=== PATIENT | female | born 1985 | race African-American/Black ===

== ENCOUNTER 2025-02-05 20:29 | Inpatient (IN) | payer OTHER, MEDICAID ==
[~2025-02-05] VITALS: Ht 177.8 cm; Wt 116.9 kg
--- NOTE | 2025-02-05 20:57 | ED.PDOC ---
History of Present Illness HPI Comments 39-year-old female came to ER via EMS for syncope. Patient was at [employer] earlier, she felt nauseated, so she decided to go to the bathroom, however she felt dizzy and lightheaded, and she had a syncopal attack, landing face 1st in the floor. Noted 3 cm laceration on her chin. Patient states she has been dr inking alcohol and taking edible marijuana earlier. Upon arrival paramedics, noted to be hypotensive at systolic 80s. Patient was given IV fluids while EN route to the ER. Blood sugar on scene was 95. Patient denies any significant past medical history. She denies possibility of . Chief Complaint: Syncope Time Seen by MD: 20:55 Reviewed Notes: Pediatric Nurse Notes Allergies: Coded Allergies: NO KNOWN ALLERGIES (Unverified , 02/05/25) Home Meds Active Scripts Cephalexin (KEFLEX CAPSULE) 250 Mg Cp, 500 MG PO BID PRN for 5 Days, #10 CAP Prov:LEN DAUGHERTY MD 02/06/25 Bacitracin Zinc (Bacitracin) 500 Unit/Gm Oin, 500 UNIT EX TID for 3 Days, #9 % Prov:LEN DAUGHERTY MD 02/06/25 Information Source: Patient Mode of Arrival: EMS Severity: Moderate Timing: Minutes Duration: Since onset Prehospital treatment: IVF Review of Systems REVIEW OF SYSTEMS: No fever, no chills, or fatigue HEENT: No sore throat, no earache, no congestion, no neck pain. Cardiac: No chest pain. No palpitations. Lungs: No shortness of breath, no cough. GI: No nausea, no vomiting, no diarrhea, no constipation, no abdominal pain : No dysuria, frequency, or urgency. No hematuria. Musculoskeletal: No joint pain , no joint swelling, no extremity edema. Skin: No rash, no itching. (+) laceration Neuro: No headache, (+) dizziness, no weakness (+) syncope Vital Signs Vital Signs Date Time Temp Pulse Resp B/P (MAP) Pulse Ox O2 Delivery O2 Flow Rate FiO2 02/06/25 01:30 98.6 70 16 103/58 (73) 97 98.6 02/05/25 21:10 Room Air* 0 21 Physical Exam General: Awake, alert and oriented. No acute distress. Skin: Skin in warm, dry and intact. Appropriate color for ethnicity. Nailbeds pink with no cyanosis. HEENT: The head is normocephalic no scalp laceration or hematoma. Patient r eports tenderness to palpation of the right TMJ area. Patient is able to open and close the mouth without difficulty. There is a proximally 4 cm laceration right submental area. Wound is through and through to the inner lip. Conjunctivae are clear without exudates or hemorrhage. Sclera is non-icteric. EOM are intact. No signs of nystagmus. PERRLA Eyelids are normal in appearance without swelling or lesions. Oral mucosa is pink and moist Neck: The neck is supple with normal range of motion. No JVD. No C-spine tenderness Cardiac: Heart rate and rhythm are normal. No murmurs, gallops, or rubs are auscultated. Respiratory: No signs of respiratory distress. Lung sounds are clear in all lobes bilaterally without rales, rhonchi, or wheezes. Abdominal: Abdomen is soft, non-tender without distention. Bowel sounds are present and normoactive in all four quadrants. Extremities: Upper and lower extremities are atraumatic in appearance without deformity or edema. Neurological: The patient is awake, alert and oriented to person, place, and time with normal speech. Speech is clear. There is no facial asymmetry. Patient is moving all extremities spontaneously. Strength in upper and lower extremities intact. Psychiatric: Appropriate mood and affect. Good judgement and insight. 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 Was a procedure done?: Yes Sedation Sedation?: No Laceration Repair : Location mentum Length 4cm Anesthetic: Lidocaine, With epi Laceration Repair Prep: Saline, Betadine, by Irrigation Laceration Repair Wound Comple: epidermis/dermis repair, layered repair, subcut tissue repair Informed consent obtained: Yes Risks, benefits, and alternati: Yes Notes Wound irrigated copiously with normal saline under pressure. Inner lip (mucosal side): 3 deep buried sutures using 4-0 Monocryl under the mucosa Outer lip (cutaneous side): 2 deep buried 4 0 Monocryl sutures were placed in the subcutaneous layer to reapproximate muscle/deeper tissue layer A running 4-0 Monocryl suture was used unless deep subcutaneous layer Skin closure: Running 6 0 Ethilon suture placed to approximate skin edges 1 additional single interrupted 6 0 Ethilon suture placed EKG EKG : Pulse Rate (adult): 78 Cardiac Rhythm: NSR Comments Prolonged IA interval. No STEMI Differential Dx Considerations may include: Differential diagnoses considered include but are not limited to closed head injury, skull fracture, TBI, long bone fracture, rib fracture, pneumothorax, spinal fracture, spinal injury, cardiac contusion, organ laceration, pelvic fracture, laceration, soft tissue injury, vascular injury, cardiac structural disease, arrhythmia, acute coronary syndrome, orthostasis, pulmonary embolism, dissection, seizure, basilar stroke, other. X-Ray, Labs, Meds, VS Vital Signs Date Time Temp Pulse Resp B/P (MAP) Pulse Ox O2 Delivery O2 Flow Rate FiO2 02/06/25 01:30 98.6 70 16 103/58 (73) 97 98.6 02/05/25 21:35 98.6 90 16 98/58 (71) 97 98.6 02/05/25 21:10 Room Air* 0 21 02/05/25 21:10 98.6 82 16 87/62 (70) 96 98.6 02/05/25 20:58 78 02/05/25 20:46 78 02/05/25 20:36 99.7 82 16 87/62 (70) 96 99.7 Lab Test 02/05/25 21:47 02/05/25 20:49 Range/Units Troponin I High Sensitivity < 3 L < 3 L </=34 ng/L White Blood Count 7.2 4.4-10.8 10^3/uL Red Blood Count 3.98 L 4.0-5.20 10^6/uL Hemoglobin 10.9 L 12.2-16.2 g/dL Hematocrit 32.8 L 36.0-46.0 % Mean Corpuscular Volume 82.4 80.0-100.0 fL Mean Corpuscular Hemoglobin 27.3 L 28.0-32.0 pg Mean Corpuscular Hemoglobin Concent 33.1 32.0-36.0 g/dL Red Cell Distribution Width 14.0 11.8-14.3 % Platelet Count 284 140-450 10^3/uL Mean Platelet Volume 6.9 6.9-10.8 fL Neutrophils (%) (Auto) 45.4 37.0-80.0 % Lymphocytes (%) (Auto) 46.5 10.0-50.0 % Monocytes (%) (Auto) 5.6 0.0-12.0 % Eosinophils (%) (Auto) 2.1 0.0-7.0 % Basophils (%) (Auto) 0.4 0.0-2.0 % Neutrophils # (Auto) 3.3 1.6-8.6 10 ^3/uL Lymphocytes # (Auto) 3.3 0.4-5.4 10 ^3/uL Monocytes # (Auto) 0.4 0-1.3 10 ^3/uL Eosinophils # (Auto) 0.2 0-0.8 10 ^3/uL Basophils # (Auto) 0 0-0.2 10 ^3/uL Nucleated Red Blood Cells 0.0 % Sodium Level 144 136-145 mmol/L Potassium Level 3.2 L 3.5-5.1 mmol/L Chloride Level 111 H 98-107 mmol/L Carbon Dioxide Level 22 20-31 mmol/L Anion Gap 11 5-15 Blood Urea Nitrogen 10 9-23 mg/dL Creatinine 0.80 0.550-1.02 mg/dL Glomerular Filtration Rate Calc 97 >90 mL/min BUN/Creatinine Ratio 12.5 10.0-20.0 Serum Glucose 141 H 74-106 mg/dL Calcium Level 8.7 8.7-10.4 mg/dL Magnesium Level 1.8 1.6-2.6 mg/dL Total Bilirubin 0.2 0.2-1.0 mg/dL Aspartate Amino Transferase (AST) 15 13-40 U/L Alanine Aminotransferase (ALT) 13 7-40 U/L Alkaline Phosphatase 35 L 46-116 U/L B-Type Natriuretic Peptide 6.93 0-100 pg/mL Total Protein 6.2 5.7-8.2 g/dL Albumin 3.6 3.2-4.8 g/dL Current Medications Medications (Trade) Dose Ordered Sig/Reddy Route Start Time Stop Time Status Last Admin Sodium Chloride 1,000 ml @ 1,000 mls/hr Q1H ONCE IV 02/05/25 20:45 02/05/25 21:44 DC 02/05/25 21:14 Ondansetron HCl (Zofran) 4 mg ONCE ONCE IV 02/05/25 20:45 02/05/25 20:46 DC 02/05/25 21:14 Ketorolac Tromethamine (Toradol Injection) 15 mg ONCE ONCE IV 02/05/25 20:45 02/05/25 20:46 DC 02/05/25 21:14 Lidocaine/ Epinephrine (Lidocaine/ Epinephrine 2% Inj) ONCE ONCE ID 02/05/25 21:30 02/05/25 21:45 DC 02/05/25 21:30 Bacitracin 1 applic ONCE ONCE TOP 02/05/25 21:30 02/05/25 21:45 DC 02/05/25 21:30 Cefazolin Sodium 50 ml @ 100 mls/hr ONCE ONCE IV 02/05/25 23:30 02/05/25 23:59 DC 02/06/25 00:00 Diphtheria/ Tetanus/Acell Pertussis (Boostrix T-Dap) 0.5 ml ONCE ONCE IM 02/05/25 23:30 02/05/25 23:38 DC 02/05/25 23:53 Sodium Chloride 1,000 ml @ 1,000 mls/hr Q1H ONCE IV 02/06/25 02:00 02/06/25 02:59 DC 02/06/25 02:15 PROCEDURE(s): FAC2C - MAXILLOFACIAL WITHOUT HISTORY: Syncope, facial injury TECHNIQUE: Nonenhanced axial images through the facial bones with coronal and sagittal MPR. Radiation Dose Information: CT Dose: CTDI volume is mGy. Dose-length product is mGy*cm COMPARISON: None FINDINGS: Soft tissues: Evidence of skin laceration and mild contusion in the submental region in the midline/to the right of midline. No significant hematoma. Mandible: Unremarkable Maxilla: Unremarkable Zygomatic arches: Unremarkable Nasal bone: Unremarkable Orbits: Unremarkable Paranasal Sinuses / Mastoid air cells / Middle ear cavities: Clear IMPRESSION: No facial fracture. EXAM: CT HEAD WITHOUT CONTRAST INDICATION: Syncope, head injury TECHNIQUE: CT of the head without intravenous contrast. Radiation Dose Information: CT Dose: CTDI volume is 67.65 mGy. Dose-length product is 1197.63 mGy*cm The dose indicators for CT are the volume Computed Tomography (CT) Dose Index (CTDIvol) and the Dose Length Product (DLP), and are measured in units of mGy and mGy-cm, respectively. These indicators are not patient dose, but values generated from the CT scanner acquisition factors. The report includes radiation exposure data for exposures received during this examination. COMPARISON: None FINDINGS: There is no evidence of acute intracranial hemorrhage, extra-axial collection, mass effect, midline shift, herniation or hydrocephalus. The ventricles, sulci and cisterns are age appropriate. The monique-white differentiation is intact. Patchy periventricular and subcortical white matter hypoattenuation is nonspecific but may be related to small vessel ischemic disease. The visualized paranasal sinuses and mastoid air cells are clear. The surrounding soft tissues and osseous structures are unremarkable. IMPRESSION: 1. No acute intracranial hemorrhage 2. No CT findings of territorial ischemia. 3. No CT findings of displaced skull fracture. Time of 1ST Reevaluation: 20:41 Reevaluation 1ST: Unchanged Patient Education/Counseling: Other Family Education/Counseling: Other Departure 1 Departure Time of Disposition: 01:02 Impression: Primary Impression: Syncope Additional Impressions: Facial laceration Lip laceration Disposition: ADMITTED INPATIENT Condition: Stable Additional Instructions: ED DISCHARGE INSTRUCTIONS Instructions: Please read all instructions provided in this packet carefully. Stitches should be removed within 3-5 days. Return to the emergency department or primary care provider or urgent care within 3 days for a wound check. Rinse your mouth with warm salt water right after meals. Saltwater rinses may help healing. To make a saltwater solution for rinsing the mouth, mix 1 tsp of salt in 1 cup of warm water. Although you have been discharged from the Emergency Department, this does not mean that you have a "clean bill of health".No definitive diagnosis for your symptoms has been made today. It is possible that you are in the process of developing a serious illness. This is why you must return to the ED without fail if any new or worsening symptoms (especially if your symptoms include chest pain, trouble breathing, abdominal pain, fever, headache, confusion, trouble seeing, or trouble walking) It is also very important that you see a primary care doctor within the next 3-5 days to follow up. If you are unable to get an appointment, return to the ED for re-evaluation. Lightheadedness or Faintness: Care Instructions Overview Lightheadedness is a feeling that you are about to faint or "pass out." You do not feel as if you or your surroundings are moving. It is different from vertigo, which is the feeling that you or things around you are spinning or tilting. Lightheadedness usually goes away or gets better when you lie down. If lightheadedness gets worse, it can lead to a fainting spell. It is common to feel lightheaded from time to time. It may be caused by many things. These include allergies, dehydration, illness, and medicines. Lightheadedness usually is not caused by a serious problem. It often is caused by a short-lasting drop in blood pressure and blood flow to your head that occurs when you get up too quickly from a seated or lying position. Follow-up care is a trujillo part of your treatment and safety. Be sure to make and go to all appointments, and call your doctor if you are having problems. It's also a good idea to know your test results and keep a list of the medicines you take. How can you care for yourself at home? Lie down for 1 or 2 minutes when you feel lightheaded. After lying down, sit up slowly and remain sitting for 1 to 2 minutes before slowly standing up. Avoid movements, positions, or activities that have made you lightheaded in the past. Get plenty of rest, especially if you have a cold or flu, which can cause lightheadedness. Make sure you drink plenty of fluids, especially if you have a fever or have been sweating. Do not drive or put yourself and others in danger while you feel lightheaded. When should you call for help? Call 911 anytime you think you may need emergency care. For example, call if: You passed out (lost consciousness). You have symptoms of a stroke. These may include: Sudden numbness, tingling, weakness, or loss of movement in your face, arm, or leg, especially on only one side of your body. Sudden vision changes. Sudden trouble speaking. Sudden confusion or trouble understanding simple statements. Sudden problems with walking or balance. A sudden, severe headache that is different from past headaches. You have symptoms of a heart attack. These may include: Chest pain or pressure, or a strange feeling in the chest. Sweating. Shortness of breath. Nausea or vomiting. Pain, pressure, or a strange feeling in the back, neck, jaw, or upper belly or in one or both shoulders or arms. Lightheadedness or sudden weakness. A fast or irregular heartbeat. After you call 911, the desulphurizer operator may tell you to chew 1 adult-strength or 2 to 4 low-dose aspirin. Wait for an ambulance. Do not try to drive yourself. Watch closely for changes in your health, and be sure to contact your doctor if: Your lightheadedness gets worse or does not get better with home care. Credits for Lightheadedness or Faintness: Care Instructions Current as of: April 28, 2024 Author: [employer] Clinical Review Board All [employer] education is reviewed by a team that includes physicians, nurses, advanced practitioners, registered dieticians, and other healthcare professionals. e-Prescriptions Cephalexin (KEFLEX CAPSULE) 250 Mg Cp 500 MG PO BID PRN for 5 Days, #10 CAP Prov: LEN DAUGHERTY MD 02/06/25 Bacitracin Zinc (Bacitracin) 500 Unit/Gm Oin 500 UNIT EX TID for 3 Days, #9 % Prov: LEN DAUGHERTY MD 02/06/25 Comments 39-year-old female with syncopal episode, facial laceration, head injury CT head negative. Patient continues to feel lightheaded, foggy after syncopal episode. Blood pressure is still soft after IV fluids in the ED. Patient admitted to hospitalist service for further treatment, evaluation and monitoring. Extensive evaluation was performed in attempt to identify or rule out: (See differential diagnosis section) The following tests were ordered, and results were reviewed by me and discussed with patient: (See diagnostic results section) The following test were independently interpreted by me: N/A I reviewed and agreed with the following test results read by other providers: N/A I reviewed the following notes from the pt's past medical encounters: N/A Additional information was gathered from interviewing the following independent historians: N/A Discussion of management or test interpretation with external physician/other qualified health intensive care unit nurse: N/A Addressed [ ]one or more chronic illnesses with severe exacerbation, progression, or side effects of treatment: [ ]an acute or chronic illness that poses a threat to life or bodily function: [ ] Decision regarding hospitalization or escalation of hospital level of care: Risk and benefits of admission for further treatment of patient's condition was considered. Due to patient's current clinical condition, high risk of decline and poor outcome if discharged and need for further inpatient management and monitoring, patient will be admitted to the hospital. Discussed with patient. Drug therapy requiring intensive monitoring for toxicity: N/A Parenteral controlled substances: N/A Decision regarding elective major surgery with identified patient or procedure risk factors: N/A Decision regarding emergency major surgery: N/A Decision not to resuscitate or to de-escalate care because of poor prognosis: N/A Diagnosis or treatment significantly limited by social determinants of health: N/A Decision regarding hospitalization or escalation of hospital level of care: Risks and benefits of admission for further treatment of patient's condition was considered however due to patient's stable condition patient will be discharged to follow up closely or return to care for worsening of condition or inability to follow up. Critical Care Note Critical Care Time?: No Stability Stability form required: No Heart Score Heart Score: Heart Score Response (Comments) Value History Slightly Suspicious 0 EKG Normal 0 Age <45 0 Risk Factors No known risk factors 0 Troponin Normal limit 0 Total 0 I personally scribed for LEN DAUGHERTY MD ([email or web address]) on 02/05/25 at 20:57. Electronically submitted by Carlton Dorsey ([email or web address]). I personally scribed for LEN DAUGHERTY MD ([email or web address]) on 02/05/25 at 20:58. E lectron[facility] I personally scribed for LEN DAUGHERTY MD ([email or web address]) on 02/05/25 at 22:24. Electronically submitted by Carlton Dorsey ([employer]). LEN DAUGHERTY MD February 05, 2025 20:57
[2025-02-05] MEDS: KETOROLAC TROMETH 30 MG/ML 1ML VIAL IV ONE (21:14)
[2025-02-05] MEDS: SODIUM CHLORIDE 0.9% 1,000 ML IV ONE (21:14)
[2025-02-05] MEDS: ONDANSETRON HCL 4 MG/2 ML VIAL IV ONE (21:14)
[2025-02-05 21:25] LABS: Basophils # (auto) 0 10 ^3/uL (0-0.2); Basophils % (auto) 0.4 % (0.0-2.0); Eosinophils # (auto) 0.2 10 ^3/uL (0-0.8); Eosinophils % (auto) 2.1 % (0.0-7.0); Hematocrit 32.8 % (36.0-46.0); Hemoglobin 10.9 g/dL (12.2-16.2); Lymphocytes # (auto) 3.3 10 ^3/uL (0.4-5.4); Lymphocytes % (auto) 46.5 % (10.0-50.0); Mean Corpuscular Hemoglobin 27.3 pg (28.0-32.0); Mean Corpuscular Hgb Conc. 33.1 g/dL (32.0-36.0); Mean Corpuscular Volume 82.4 fL (80.0-100.0); Monocytes # (auto) 0.4 10 ^3/uL (0-1.3); Monocytes % (auto) 5.6 % (0.0-12.0); Neutrophils # (auto) 3.3 10 ^3/uL (1.6-8.6); Neutrophils % (auto) 45.4 % (37.0-80.0); Platelet Count (auto) 284 10^3/uL (140-450); Red Blood Cells 3.98 10^6/uL (4.0-5.20); White Blood Cell 7.2 10^3/uL (4.4-10.8)
[2025-02-05] MEDS: BUPIVACAINE 0.25% INJ 50ML VIAL ID ONE (21:30)
[2025-02-05] MEDS: BACITRACIN TOP OINT 1 UD PKG TOP ONE (21:30)
[2025-02-05] MEDS: LIDOCAINE W/ EPINEPHRINE 2% INJ 20ML VIAL ID ONE (21:30)
[2025-02-05 21:42] LABS: Alanine Aminotransferase 13 U/L (7-40); Albumin 3.6 g/dL (3.2-4.8); Anion Gap 11 (5-15); Aspartate Aminotransferase 15 U/L (13-40); BUN/Creatinine Ratio 12.5 (10.0-20.0); Blood Urea Nitrogen 10 mg/dL (9-23); Carbon Dioxide 22 mmol/L (20-31); Chloride 111 mmol/L (98-107); Magnesium 1.8 mg/dL (1.6-2.6); Potassium 3.2 mmol/L (3.5-5.1); Sodium 144 mmol/L (136-145); Total Protein 6.2 g/dL (5.7-8.2)
[2025-02-05 21:43] LABS: Alkaline Phosphatase 35 U/L (46-116); Bilirubin, Total 0.2 mg/dL (0.2-1.0); Calcium 8.7 mg/dL (8.7-10.4); Glucose 141 mg/dL (74-106)
--- NOTE | 2025-02-05 21:44 | DVH ---
EXAM: CT HEAD WITHOUT CONTRAST INDICATION: Syncope, head injury TECHNIQUE: CT of the head without intravenous contrast. Radiation Dose Information: CT Dose: CTDI volume is 67.65 mGy. Dose-length product is 1197.63 mGy*cm The dose indicators for CT are the volume Computed Tomography (CT) Dose Index (CTDIvol) and the Dose Length Product (DLP), and are measured in units of mGy and mGy-cm, respectively. These indicators are not patient dose, but values generated from the CT scanner acquisition factors. The report includes radiation exposure data for exposures received during this examination. COMPARISON: None FINDINGS: There is no evidence of acute intracranial hemorrhage, extra-axial collection, mass effect, midline s hift, herniation or hydrocephalus. The ventricles, sulci and cisterns are age appropriate. The monique-white differentiation is intact. Patchy periventricular and subcortical white matter hypoattenuation is nonspecific but may be related to small vessel ischemic disease. The visualized paranasal sinuses and mastoid air cells are clear. The surrounding soft tissues and osseous structures are unremarkable. IMPRESSION: 1. No acute intracranial hemorrhage 2. No CT findings of territorial ischemia. 3. No CT findings of displaced skull fracture. HS:Y
--- NOTE | 2025-02-05 21:50 | DVH ---
HISTORY: Syncope, facial injury TECHNIQUE: Nonenhanced axial images through the facial bones with coronal and sagittal MPR. Radiation Dose Information: CT Dose: CTDI volume is mGy. Dose-length product is mGy*cm COMPARISON: None FINDINGS: Soft tissues: Evidence of skin laceration and mild contusion in the submental region in the midline/ to the right of midline. No significant hematoma. Mandible: Unremarkable Maxilla: Unremarkable Zygomatic arches: Unremarkable Nasal bone: Unremarkable Orbits: Unremarkable Paranasal Sinuses / Mastoid air cells / Middle ear cavities: Clear IMPRESSION: No facial fracture. Radiation optimization: All CT scans at this facility use at least one of these dose optimization samantha hniques: automated exposure control mA and/or kV adjustment per patient size (includes targeted exam s where dose is matched to clinical indication) or iterative reconstruction.
[2025-02-05] MEDS: TETANUS-DIPTH-ACEL PERTUSSIS 0.5ML SYR Tdap IM ONE (23:53)
[2025-02-06] VITALS (9 sets, daily range): BP systolic 101–121; BP diastolic 53–83; PULSE 76–101; RESP 17–18; TEMP 97.1–98.9; O2SAT 97–100
[2025-02-06] MEDS: ceFAZolin 1GM/50ML 50 ML IV ONE
[2025-02-06] MEDS ORDERED: CEPH250C PO (01:34)
[2025-02-06] MEDS ORDERED: BACI-5 EX (01:34)
[2025-02-06] MEDS ORDERED: ONDANSETRON HCL 4 MG/2 ML VIAL IV PRN (02:15)
[2025-02-06] MEDS: SODIUM CHLORIDE 0.9% 1,000 ML IV ONE ×2 (02:15→05:16)
[2025-02-06] MEDS ORDERED: ACETAMINOPHEN 325 MG TAB PO PRN (02:15)
[2025-02-06] MEDS ORDERED: NITROGLYCERIN 0.4 MG SL TAB SL PRN (02:15)
[2025-02-06] MEDS ORDERED: DOCUSATE SOD 100 MG CAP PO PRN (02:15)
[2025-02-06] MEDS ORDERED: MORPHINE SULFATE INJ 2 MG/ml SYRG IV PRN (02:15)
--- NOTE | 2025-02-06 02:22 | DVHHP2 ---
History of Present Illness Reason for Visit: Syncope History of Present Illness The patient is a 39-year-old female who denies past medical history presented to [facility] ED for evaluation of syncopal episode. Patient [facility] when she felt nauseated, felt dizzy, lightheaded and she had a syncopal attack landing on her face in the floor with sustained laceration to her chin. Patient was seen and evaluated in the ED, laboratory data shows WBC 7.2, hemoglobin 10.9, hematocrit 32.8, platelets 284, sodium 144, potassium 3.2, BUN 10, creatinine 0.80, glucose 141, troponin < 3, BNP 6.93, blood pressure 103/58, heart rate 70, temperature 98.6� F, O2 saturation 97% on room air. Head CT showed no acute intracranial hemorrhage. Please see medication orders section in the computer. On my assessment, patient denied chest pain, no headache, no dizziness, no diaphoresis, no shortness of breath, no nausea, no vomiting, no fever, no chills. Patient was admitted for further evaluation and medical management. Past Medical History Denies past medical history Past Surgical History Denies all surgeries Family History Reviewed, noncontributory to the management of this case. Past Social History The patient lives at home, denies smoking, drinks alcohol occasionally, uses marijuana. Review of Systems Constitutional: No: Fever, Chills, Sweats, Weakness, Malaise, Other Eyes: No: Pain, Vision change, Conjunctivae inflammation, Eyelid inflammation, Other, Redness ENT: No: Ear pain, Ear discharge, Nose pain, Nose discharge, Nose congestion, Mouth pain, Mouth swelling, Throat pain, Throat swelling, Other Respiratory: No: Cough, Dry, Shortness of breath, SOB with excertion, Wheezing, Hemoptysis, Pleuritic Pain, Sputum, Wheezing, Other Cardiovascular: Other (Syncope); No: Chest Pain, Palpitations, Orthopnea, Paroxysmal Noc. Dyspnea, Edema, Lt Headedness Gastrointestinal: No: Nausea, Vomiting, Abdominal Pain, Diarrhea, Constipation, Melena, Hematochezia, Other Genitourinary: No Dysuria, No Frequency, No Incontinence, No Hematuria, No Retention, No Other Musculoskeletal: No: other, neck pain, shoulder pain, arm pain, back pain, hand pain, leg pain, foot pain Skin: Other (Facial/lips laceration); No: Rash, Lesions, Jaundice, Bruising Neurological: No: Weakness, Numbness, Incoordination, Change in speech, Confusion, Seizures, Other Allergies: Coded Allergies: NO KNOWN ALLERGIES (Unverified , 02/05/25) Exam Vital Signs Vital Signs Date Time Temp Pulse Resp B/P (MAP) Pulse Ox O2 Delivery O2 Flow Rate FiO2 02/06/25 01:30 98.6 70 16 103/58 (73) 97 98.6 02/05/25 21:10 Room Air* 0 21 General Appearance: Alert, Oriented X3, Cooperative, No acute distress HEENT: Atraumatic, PERRLA, EOMI, Mucous membr. moist/pink Respiratory: Clear to auscultation, Normal air movement Cardiovascular: Regular rate, Normal S1, Normal S2, No murmurs Abdominal: Normal bowel sounds, Soft, No tenderness, No hepatospenomegaly, No masses Extremities: No clubbing, No cyanosis, No edema, Normal pulses, No tenderness/swelling Skin: No rashes, No breakdown Neuro: Normal gait, Normal speech, Strength at 5/5 X4 ext, Normal tone, Sensation intact, Cranial nerves 3-12 NL, Reflexes 2+ Psych/Mental Status: Mental status NL, Mood NL Labs/Xrays Labs Test 02/05/25 21:47 02/05/25 20:49 Range/Units Troponin I High Sensitivity < 3 L </=34 ng/L White Blood Count 7.2 4.4-10.8 10^3/uL Red Blood Count 3.98 L 4.0-5.20 10^6/uL Hemoglobin 10.9 L 12.2-16.2 g/dL Hematocrit 32.8 L 36.0-46.0 % Mean Corpuscular Volume 82.4 80.0-100.0 fL Mean Corpuscular Hemoglobin 27.3 L 28.0-32.0 pg Mean Corpuscular Hemoglobin Concent 33.1 32.0-36.0 g/dL Red Cell Distribution Width 14.0 11.8-14.3 % Platelet Count 284 140-450 10^3/uL Mean Platelet Volume 6.9 6.9-10.8 fL Neutrophils (%) (Auto) 45.4 37.0-80.0 % Lymphocytes (%) (Auto) 46.5 10.0-50.0 % Monocytes (%) (Auto) 5.6 0.0-12.0 % Eosinophils (%) (Auto) 2.1 0.0-7.0 % Basophils (%) (Auto) 0.4 0.0-2.0 % Neutrophils # (Auto) 3.3 1.6-8.6 10 ^3/uL Lymphocytes # (Auto) 3.3 0.4-5.4 10 ^3/uL Monocytes # (Auto) 0.4 0-1.3 10 ^3/uL Eosinophils # (Auto) 0.2 0-0.8 10 ^3/uL Basophils # (Auto) 0 0-0.2 10 ^3/uL Nucleated Red Blood Cells 0.0 % Sodium Level 144 136-145 mmol/L Potassium Level 3.2 L 3.5-5.1 mmol/L Chloride Level 111 H 98-107 mmol/L Carbon Dioxide Level 22 20-31 mmol/L Anion Gap 11 5-15 Blood Urea Nitrogen 10 9-23 mg/dL Creatinine 0.80 0.550-1.02 mg/dL Glomerular Filtration Rate Calc 97 >90 mL/min BUN/Creatinine Ratio 12.5 10.0-20.0 Serum Glucose 141 H 74-106 mg/dL Calcium Level 8.7 8.7-10.4 mg/dL Magnesium Level 1.8 1.6-2.6 mg/dL Total Bilirubin 0.2 0.2-1.0 mg/dL Aspartate Amino Transferase (AST) 15 13-40 U/L Alanine Aminotransferase (ALT) 13 7-40 U/L Alkaline Phosphatase 35 L 46-116 U/L B-Type Natriuretic Peptide 6.93 0-100 pg/mL Total Protein 6.2 5.7-8.2 g/dL Albumin 3.6 3.2-4.8 g/dL PATIENT: GRETA RAMIREZ ACCT: [id number] UNIT: [id number] : 1985 LOC: ER ROOM / BED: / AGE / SEX: 39 / F ADM STATUS: REG ER SERVICE 37 ORDERING PHYSICIAN: LEN DAUGHERTY MD PROCEDURE(s): HWOCT - HEAD WITHOUT CONTRAST REASON: Syncope, head injury ORDER NUMBER(s): [id number], ACCESSION NUMBER(s): [id number] EXAM: CT HEAD WITHOUT CONTRAST INDICATION: Syncope, head injury TECHNIQUE: CT of the head without intravenous contrast. Radiation Dose Information: CT Dose: CTDI volume is 67.65 mGy. Dose-length product is 1197.63 mGy*cm The dose indicators for CT are the volume Computed Tomography (CT) Dose Index (CTDIvol) and the Dose Length Product (DLP), and are measured in units of mGy and mGy-cm, respectively. These indicators are not patient dose, but values generated from the CT scanner acquisition factors. The report includes radiation exposure data for exposures received during this examination. COMPARISON: None FINDINGS: There is no evidence of acute intracranial hemorrhage, extra-axial collection, mass effect, midline shift, herniation or hydrocephalus. The ventricles, sulci and cisterns are age appropriate. The monique-white differentiation is intact. Patchy periventricular and subcortical white matter hypoattenuation is nonspecific but may be related to small vessel ischemic disease. The visualized paranasal sinuses and mastoid air cells are clear. The surrounding soft tissues and osseous structures are unremarkable. IMPRESSION: 1. No acute intracranial hemorrhage 2. No CT findings of territorial ischemia. 3. No CT findings of displaced skull fracture. ORDERING PHYSICIAN: LEN DAUGHERTY MD PROCEDURE(s): FAC2C - MAXILLOFACIAL WITHOUT REASON: Syncope, facial injury ORDER NUMBER(s): [id number], ACCESSION NUMBER(s): [id number] HISTORY: Syncope, facial injury TECHNIQUE: Nonenhanced axial images through the facial bones with coronal and sagittal MPR. Radiation Dose Information: CT Dose: CTDI volume is mGy. Dose-length product is mGy*cm COMPARISON: None FINDINGS: Soft tissues: Evidence of skin laceration and mild contusion in the submental region in the midline/to the right of midline. No significant hematoma. Mandible: Unremarkable Maxilla: Unremarkable Zygomatic arches: Unremarkable Nasal bone: Unremarkable Orbits: Unremarkable Paranasal Sinuses/Mastoid air cells/Middle ear cavities: Clear IMPRESSION: No facial fracture. Assessment/Plan Assessment/Plan Syncope Hypokalemia Facial laceration Lip laceration Plan 1. Admit to telemetry unit 2. Breathing treatment 3. Pain control management 4. Management of fluids and electrolytes 5. Consultation for Cardiology 6. Diagnostic tests head CT 7. DVT prophylaxis-on SCDs 8. Repeat labs CBC, CMP in a.m. 9. Continue with current medical management 10. Treatment plan discussed with patient and RN. Patient verbalized understanding. Plan discussed with: Patient, Other (RN) My Orders Orders - BEN HERNANDEZ DNP Procedure Category Date Status Time Complete Blood Count LAB 02/06/25 Verified 04:00 Comprehensive LAB 02/06/25 Verified Metabolic Panel 04:00 Bacitracin Ointment PHA 02/06/25 Verified 10:00 * Cardiology Consult CONS 02/06/25 Verified 02:12 Potassium Er Tablet PHA 02/06/25 Verified (Klor-Con Tablet) 02:15 Admit ADMIT 02/06/25 Verified 02:12 Allergies YOGESH 02/06/25 Verified 02:12 Code Status CODE 02/06/25 Verified 02:12 Sodium Chloride Lock PHA 02/06/25 Verified (Saline Lock Ns) 06:00 Oxygen Per Hour RT 02/06/25 Verified 02:12 Hydrocodone-Acet PHA 02/06/25 Verified 5/325mg Tab ([place] 02:15 Ondansetron Hcl PHA 02/06/25 Verified (Zofran) 02:15 Docusate Sodium PHA 02/06/25 Verified Capsule (Colace 02:15 Fall Risk Precautions BANNER 02/06/[address] 02:12 Complete Blood Count LAB 02/07/25 Verified 04:00 Comprehensive LAB 02/07/25 Verified Metabolic Panel 04:00 Cardiac DIET 02/06/25 Verified Diet-2gna,Lofat,Lochol Breakfast Condition: Serious YOGESH 02/06/25 Verified 02:12 Acetaminophen Tablet PHA 02/06/25 Verified (Tylenol Tablet) 02:15 Maintain Bed Rest BANNER 02/06/25 Verified 02:12 Sequential BANNER 02/06/25 Verified Compression Device Nitroglycerin PHA 02/06/25 Verified Sublingual (Ntrostat 02:15 Morphine Sulfate PHA 02/06/25 Verified Injection 02:15 Notify Of Changes BANNER 02/06/25 Verified From Base 02:12 Marketing Writer For BANNER 02/06/25 Verified 24 Hours 02:12 Emergency Dysrhythmia BANNER 02/06/25 Verified Protocol 02:12 Rhythm Strips Once BANNER 02/06/25 Verified Every Shift 02:12 Oxygen By Nasal RT 02/06/25 Verified Cannula 02:12 Problem List: (1) Syncope (2) Hypokalemia (3) Facial laceration (4) Lip laceration Date of Service: February 06, 2025 Billing Provider: BEN HERNANDEZ DNP Common Visit Codes: [id number] INP/OBS CARE (HIGH) BEN HERNANDEZ DNP February 06, 2025 02:22
[2025-02-06 02:48] LABS: Basophils # (auto) 0.1 10 ^3/uL (0-0.2); Basophils % (auto) 0.6 % (0.0-2.0); Eosinophils # (auto) 0.1 10 ^3/uL (0-0.8); Eosinophils % (auto) 0.5 % (0.0-7.0); Hematocrit 36.2 % (36.0-46.0); Hemoglobin 12.1 g/dL (12.2-16.2); Lymphocytes # (auto) 2.4 10 ^3/uL (0.4-5.4); Lymphocytes % (auto) 22.4 % (10.0-50.0); Mean Corpuscular Hemoglobin 27.3 pg (28.0-32.0); Mean Corpuscular Hgb Conc. 33.5 g/dL (32.0-36.0); Mean Corpuscular Volume 81.5 fL (80.0-100.0); Monocytes # (auto) 0.7 10 ^3/uL (0-1.3); Monocytes % (auto) 6.7 % (0.0-12.0); Neutrophils # (auto) 7.4 10 ^3/uL (1.6-8.6); Neutrophils % (auto) 69.8 % (37.0-80.0); Platelet Count (auto) 314 10^3/uL (140-450); Red Blood Cells 4.44 10^6/uL (4.0-5.20); White Blood Cell 10.6 10^3/uL (4.4-10.8)
[2025-02-06] MEDS: ACETAMINOPHEN 325 MG TAB PO ONE (02:51)
[2025-02-06] MEDS: POTASSIUM CHL 20 Meq TABLET PO ONE (02:51)
[2025-02-06] MEDS: KETOROLAC TROMETH 30 MG/ML 1ML VIAL IV ONE (02:52)
[2025-02-06 03:01] LABS: Alanine Aminotransferase 15 U/L (7-40); Albumin 3.9 g/dL (3.2-4.8); Anion Gap 7 (5-15); Aspartate Aminotransferase 20 U/L (13-40); BUN/Creatinine Ratio 15.9 (10.0-20.0); Blood Urea Nitrogen 11 mg/dL (9-23); Carbon Dioxide 23 mmol/L (20-31); Potassium 3.7 mmol/L (3.5-5.1); Sodium 142 mmol/L (136-145); Total Protein 6.5 g/dL (5.7-8.2)
[2025-02-06 03:02] LABS: Alkaline Phosphatase 42 U/L (46-116); Bilirubin, Total 0.2 mg/dL (0.2-1.0); Calcium 8.3 mg/dL (8.7-10.4); Chloride 112 mmol/L (98-107); Glucose 111 mg/dL (74-106)
[2025-02-06 03:34] LABS: Urine Bacteria FEW /hpf (None Seen); Urine Blood Negative /uL (Negative); Urine Budding Yeast OCCASIONAL /hpf (None Seen); Urine Clarity Turbid (Clear); Urine Color Light-Yellow (Yellow); Urine Hyaline Cast FEW /lpf (0 - 2); Urine Mucus FEW (None Seen); Urine Protein, UAD Negative (Negative); Urine Specific Gravity 1.016 (1.001-1.035); Urine Squamous Epithelial Cell FEW /hpf (<5); Urine Urobilinogen Normal (Negative); Urine WBC 17 /HPF (0-5); Urine pH 5.5 (5.0-9.0)
[2025-02-06] MEDS: SODIUM CHLOR 0.9% PF (SALINE LOCK) 10ML VIAL/SYR IV SCH (06:00)
[2025-02-06] MEDS: HYDROcodone-ACET 5/325MG TAB PO PRN (06:38)
--- NOTE | 2025-02-06 07:14 | ECG ---
[facility] Test Date: 2025-02-05 Test Time: 20:46:31 Pat Name: GRETA RAMIREZ Department: ED Room: [address] [place] [address] 6 Gender: F Teaching Pastor: : 1985 Requested By: LEN DAUGHERTY Order Number: [id number] Reading MD: Luis Carlos Hinds Measurements Intervals Muse Rate: 78 P: 44 SD: 263 QRS: 74 QRSD: 88 T: 63 QT: 396 QTc: 452 Interpretive Statements Sinus rhythm Prolonged SD interval Electronically Signed On 02-09-2025 12:40:26 PDT by Luis Carlos Hinds Please click the below link to view image of tracing.
[2025-02-06] MEDS: BACITRACIN TOP OINT 1 UD PKG TOP SCH (10:00)
--- NOTE | 2025-02-06 11:11 | DVHINCON2 ---
Date Seen: February 06, 2025 Referring Physician Armando Reason for Consultation Syncope History of Present Illness 39-year-old female with no significant past medical history presents to the hospital with syncopal episode. Patient states that she got a fairly quick and ended up losing consciousness for few sec falling forward hitting her chin on the pavement ending up with a laceration. Patient does state that at times she gets some palpitations. Denies chest pain, shortness of breath. Patient states this has happened in the past though has been years. Patient does endorse that she did have 2 alcoholic beverages with coming marijuana the day of syncopal episode. Troponins negative. EKG reviewed shows normal sinus rhythm at 78 beats per minute, no significant ST and T-wave abnormalities noted. Past Medical History Denies Past Surgical History Denies Family History: Hypertension G8 FATHER Social History Does use occasional alcohol and marijuana use, denies any other illicit drug use, does vape nicotine. Allergies: Coded Allergies: NO KNOWN ALLERGIES (Unverified , 02/05/25) Home Meds Active Scripts Cephalexin (KEFLEX CAPSULE) 250 Mg Cp, 500 MG PO BID PRN for 5 Days, #10 CAP Prov:LEN DAUGHERTY MD 02/06/25 Bacitracin Zinc (Bacitracin) 500 Unit/Gm Oin, 500 UNIT EX TID for 3 Days, #9 % Prov:LEN DAUGHERTY MD 02/06/25 Current Medications Current Medications Medications (Trade) Dose Ordered Sig/Reddy Route PRN Reason Start Time Stop Time Status Last Admin Bacitracin 1 applic BID TOP 02/06/25 10:00 Sodium Chloride (Saline Lock Ns) 10 ml Q8HR IV 02/06/25 06:00 02/06/25 06:00 Acetaminophen/ Hydrocodone Bitart (Trosper 5/325MG Tab) 1 tab Q4HP PRN PO MODERATE PAIN (4-6 PAIN SCALE) 02/06/25 02:15 02/06/25 10:41 Ondansetron HCl (Zofran) 4 mg Q4HP PRN IV NAUSEA / VOMITING 02/06/25 02:15 Docusate Sodium (Colace Capsule) 100 mg BIDPRN PRN PO FOR CONSTIPATION 02/06/25 02:15 Acetaminophen (Tylenol Tablet) 650 mg Q6HP PRN PO PAIN SCALE 1-3 OR TEMP>100.4 02/06/25 02:15 Nitroglycerin (Ntrostat Sublingual) 0.4 mg Q5MINP PRN SL FOR CHEST PAIN 02/06/25 02:15 Morphine Sulfate 2 mg Q30M PRN IV FOR CHEST PAIN 02/06/25 02:15 Review of Systems Constitutional: No: Fever, Chills, Sweats, Weakness, Malaise, Other Eyes: No: Pain, Vision change, Conjunctivae inflammation, Eyelid inflammation, Other, Redness ENT: No: Ear pain, Ear discharge, Nose pain, Nose discharge, Nose congestion, Mouth pain, Mouth swelling, Throat pain, Throat swelling, Other Respiratory: No: Cough, Dry, Shortness of breath, SOB with exertion, Wheezing, Hemoptysis, Pleuritic Pain, Sputum, Wheezing, Other Cardiovascular: ; No: Chest Pain Palpitations, Orthopnea, Paroxysmal Noc. Dyspnea, Edema, Lt Headedness, Other Gastrointestinal: No: Nausea, Vomiting, Abdominal Pain, Diarrhea, Constipation, Melena, Hematochezia, Other Genitourinary: No Dysuria, No Frequency, No Incontinence, No Hematuria, No Retention, No Other Musculoskeletal: neck pain; No: other, shoulder pain, arm pain, back pain, hand pain, leg pain, foot pain Skin: No: Rash, Lesions, Jaundice, Bruising, Other Neurological: Other (Dizziness, headache.); No: Weakness, Numbness, Incoordination, Change in speech, Confusion, Seizures Vital Signs Vital Signs Date Time Temp Pulse Resp B/P (MAP) Pulse Ox O2 Delivery O2 Flow Rate FiO2 02/06/25 05:00 97.7 85 17 101/63 (76) 97 97.7 02/06/25 03:52 Room Air* 0 21 Physical Exam General appearance: Patient is well-developed, well-nourished, in no acute distress. HEENT: Exam shows: Normocephalic, atraumatic, PERRLA, EOMI Neck: Supple, no bruits Chest: Equal chest excursion bilaterally. Breath sounds normal-no rales or wheezes. Heart: Rhythm: Regular rate; no murmur or gallop Abdomen: Exam shows: Soft, nontender, nondistended Musculoskeletal: No clubbing, no cyanosis, no lower extremity edema Dermatology: Skin warm, moist. Neurological: Exam shows: Alert and oriented x4, normal speech Available prior records, labs, EKG, rhythm strips reviewed and interpreted Labs/Diagnostic Data Labs Test 02/06/25 03:20 02/06/25 02:39 02/05/25 21:47 02/05/25 20:49 Range/Units Urine Color Light-yellow Yellow Urine Clarity Turbid H Clear Urine pH 5.5 5.0-9.0 Urine Specific [place] 1.016 1.001-1.035 Urine Protein Negative Negative Urine Ketones Negative Negative Urine Blood Negative Negative /uL Urine Nitrite Negative Negative Urine Bilirubin Negative Negative Urine Urobilinogen Normal Negative mg/dL Urine Leukocyte Esterase 3+ Negative /uL Urine RBC 2 0 - 4 /hpf Urine Microscopic WBC 17 H 0-5 /HPF Urine Squamous Epithelial Cells Few <5 /hpf Urine Bacteria Few H None Seen /hpf Urine Hyaline Casts Few 0 - 2 /lpf Urine Mucus Few None Seen Urine Yeast (Budding) Occasional None Seen /hpf Urine Glucose Normal Normal mg/dL White Blood Count 10.6 # 4.4-10.8 10^3/uL Red Blood Count 4.44 4.0-5.20 10^6/uL Hemoglobin 12.1 L 12.2-16.2 g/dL Hematocrit 36.2 # 36.0-46.0 % Mean Corpuscular Volume 81.5 80.0-100.0 fL Mean Corpuscular Hemoglobin 27.3 L 28.0-32.0 pg Mean Corpuscular Hemoglobin Concent 33.5 32.0-36.0 g/dL Red Cell Distribution Width 14.0 11.8-14.3 % Platelet Count 314 140-450 10^3/uL Mean Platelet Volume 6.6 L 6.9-10.8 fL Neutrophils (%) (Auto) 69.8 37.0-80.0 % Lymphocytes (%) (Auto) 22.4 10.0-50.0 % Monocytes (%) (Auto) 6.7 0.0-12.0 % Eosinophils (%) (Auto) 0.5 0.0-7.0 % Basophils (%) (Auto) 0.6 0.0-2.0 % Neutrophils # (Auto) 7.4 1.6-8.6 10 ^3/uL Lymphocytes # (Auto) 2.4 0.4-5.4 10 ^3/uL Monocytes # (Auto) 0.7 0-1.3 10 ^3/uL Eosinophils # (Auto) 0.1 0-0.8 10 ^3/uL Basophils # (Auto) 0.1 0-0.2 10 ^3/uL Nucleated Red Blood Cells 0.0 % Sodium Level 142 136-145 mmol/L Potassium Level 3.7 3.5-5.1 mmol/L Chloride Level 112 H 98-107 mmol/L Carbon Dioxide Level 23 20-31 mmol/L Anion Gap 7 5-15 Blood Urea Nitrogen 11 9-23 mg/dL Creatinine 0.69 0.550-1.02 mg/dL Glomerular Filtration Rate Calc 115 >90 mL/min BUN/Creatinine Ratio 15.9 10.0-20.0 Serum Glucose 111 H 74-106 mg/dL Hemoglobin A1c 5.2 <5.7 % A1C Calcium Level 8.3 L 8.7-10.4 mg/dL Total Bilirubin 0.2 0.2-1.0 mg/dL Aspartate Amino Transferase (AST) 20 13-40 U/L Alanine Aminotransferase (ALT) 15 7-40 U/L Alkaline Phosphatase 42 L 46-116 U/L Total Protein 6.5 5.7-8.2 g/dL Albumin 3.9 3.2-4.8 g/dL Troponin I High Sensitivity < 3 L </=34 ng/L Magnesium Level 1.8 1.6-2.6 mg/dL B-Type Natriuretic Peptide 6.93 0-100 pg/mL Assessment Syncope Palpitation Anemia Hypokalemia Chin laceration Plan/Recommendation * Continue telemetry monitoring. Likely vasovagal, Check TSH. Follow up echo. * Orthostatic vital signs. * Nicotine Vaping, marijuana, ETOH cessation advised * Patient having episodes of palpitations, recommend outpatient event monitoring. Case Discussed with Dr Dukes. If no significant abnormalities on echo, no further cardiac work-up indicated at this time. Outpatient follow up. Thank you for allowing us to participate in this patient's care. Critical care, time spent: 35 minutes This medical document was created using an electronic medical record system with voice recognition software and computerized dictation system. Although this document has been carefully reviewed, there might still be some phonetic and typographical errors. Occasional wrong-word or ``sound-alike�� substitutions may have occurred due to the inherent limitations of voice recognition software. These areas are purely typographical due to imperfections of the software programs and do not reflect any compromise in the patient's medical care. Suellen meraz read the chart carefully and recognize, using context, where these substitutions have occurred. Thank you for allowing me to participate in the management of this patient. The treatment plan was discussed with and agreed upon by patient/family jonathan romero requesting consultants and ordering of imaging/procedures. Plan discussed with: Patient NYHA Physical activity limitations: NA Date of Service: February 06, 2025 Billing Provider: JOSE JUAN VILLAFANA Cardiology Common Codes: [id number] INP/OBS CARE (High), [id number] CARE 30-74 MIN JOSE JUAN VILLAFANA February 06, 2025 11:11
--- NOTE | 2025-02-06 12:44 | DVHPN2 ---
Reviewed: Care Plan, H&P, Labs, Medications, Previous Orders, Radiology Changes from previous H/P or p: No Changes Eyes: No Pain, No Vision change, No Conjunctivae inflammation, No Eyelid inflammation, No Other, No Redness ENT: No Ear pain, No Ear discharge, No Nose pain, No Nose discharge, No Nose congestion, No Mouth pain, No Mouth swelling, No Throat pain, No Throat swelling, No Other Cardiovascular: No Chest Pain, No Palpitations, No Orthopnea, No Paroxysmal Noc. Dyspnea, No Edema, No Lt Headedness; Other (Syncope) Respiratory: No Cough, No Dry, No Shortness of breath, No SOB with excertion, No Wheezing, No Hemoptysis, No Pleuritic Pain, No Sputum, No Other Gastrointestinal: No Nausea, No Vomiting, No Abdominal Pain, No Diarrhea, No Constipation, No Melena, No Hematochezia, No Other Genitourinary: No Dysuria, No Frequency, No Incontinence, No Hematuria, No Retention, No Other Musculoskeletal: No other, No neck pain, No shoulder pain, No arm pain, No back pain, No hand pain, No leg pain, No foot pain Skin: No Rash, No Lesions, No Jaundice, No Bruising; Other (Facial/lips laceration) Objective Vitals Vital Signs Date Time Temp Pulse Resp B/P (MAP) Pulse Ox O2 Delivery O2 Flow Rate FiO2 02/06/25 09:00 97.8 77 17 121/83 (96) 99 97.8 02/06/25 03:52 Room Air* 0 21 Intake/Output Intake and Output 02/06/25 07:00 Intake Total 2050 ml Balance 2050 ml Intake IV Total 2050 ml # Voids 1 Medications Current Medications Medications Dose Ordered Sig/Reddy Route Start Time Stop Time Status Last Admin Dose Admin Bacitracin 1 applic BID TOP 02/06/25 10:00 Sodium Chloride 10 ml Q8HR IV 02/06/25 06:00 02/06/25 06:00 10 ML Acetaminophen/ Hydrocodone Bitart 1 tab Q4HP PRN PO 02/06/25 02:15 02/06/25 10:41 1 TAB Ondansetron HCl 4 mg Q4HP PRN IV 02/06/25 02:15 Docusate Sodium 100 mg BIDPRN PRN PO 02/06/25 02:15 Acetaminophen 650 mg Q6HP PRN PO 02/06/25 02:15 Nitroglycerin 0.4 mg Q5MINP PRN SL 02/06/25 02:15 Morphine Sulfate 2 mg Q30M PRN IV 02/06/25 02:15 Laboratory Results Laboratory Tests 02/06/25 02:39 Chemistry Test 02/05/25 20:49 02/06/25 02:39 Albumin 3.6 g/dL (3.2-4.8) 3.9 g/dL (3.2-4.8) Calcium Level 8.7 mg/dL (8.7-10.4) 8.3 mg/dL (8.7-10.4) L Magnesium Level 1.8 mg/dL (1.6-2.6) Total Protein 6.2 g/dL (5.7-8.2) 6.5 g/dL (5.7-8.2) Cardiac Markers Test 02/05/25 20:49 B-Type Natriuretic Peptide 6.93 pg/mL (0-100) LFT Test 02/05/25 20:49 02/06/25 02:39 Alanine Aminotransferase (ALT) 13 U/L (7-40) 15 U/L (7-40) Alkaline Phosphatase 35 U/L (46-116) L 42 U/L (46-116) L Aspartate Amino Transferase (AST) 15 U/L (13-40) 20 U/L (13-40) Total Bilirubin 0.2 mg/dL (0.2-1.0) 0.2 mg/dL (0.2-1.0) HgA1c, TSH Test 02/06/25 02:39 Hemoglobin A1c 5.2 % A1C (<5.7) Thyroid Stimulating Hormone (TSH) 0.80 uIU/mL (0.55-4.78) Urinalysis Test 02/06/25 03:20 Urine Color Light-yellow (Yellow) Urine Clarity Turbid (Clear) H Urine pH 5.5 (5.0-9.0) Urine Specific [place] 1.016 (1.001-1.035) Urine Protein Negative (Negative) Urine Ketones Negative (Negative) Urine Blood Negative /uL (Negative) Urine Nitrite Negative (Negative) Urine Bilirubin Negative (Negative) Urine Urobilinogen Normal mg/dL (Negative) Urine Leukocyte Esterase 3+ /uL (Negative) Urine RBC 2 /hpf (0 - 4) Urine Microscopic WBC 17 /HPF (0-5) H Urine Squamous Epithelial Cells Few /hpf (<5) Urine Bacteria Few /hpf (None Seen) H Urine Hyaline Casts Few /lpf (0 - 2) Urine Mucus Few (None Seen) Urine Yeast (Budding) Occasional /hpf (None Urine Glucose Normal mg/dL (Normal) Labs and/or images reviewed: Labs reviewed by me, Image(s) reviewed by me Assessment/Plan Assessment/Plan Syncope and fall: CT head negative maxillofacial CT negative, rule out TIA rule out seizures: Neurology consult pending Cardiology consult appreciated Laceration chin sutured in the emergency room Carotid ultrasound pending Echocardiogram pending UTI: Urine cultures Rocephin TSH normal Chronic current alcohol abuse: Counseling Chronic current marijuana abuse Mother at the bedside Patient lives in [place] Mother is thinking of signing out AMA and taking the patient to [place] Plan discussed with: Patient My Orders Orders - MUMTAZ SHELDON MD Procedure Category Date Status Time Drug Screen LAB 02/06/25 Logged 12:28 Blood Alcohol LAB 02/06/25 In Process 12:28 Carotid Duplx W Color US 02/06/25 Logged DOP 12:36 * Neurology Consult CONS 02/06/25 Transmitted 12:37 D-Dimer LAB 02/06/25 Verified 12:38 Date of Service: February 06, 2025 Billing Provider: MUMTAZ SHELDON MD Common Visit Codes: [id number] INP/OBS CARE(HIGH) MUMTAZ SHELDON MD February 06, 2025 12:44
[2025-02-06 13:00] LABS: Amphetamine Screen, Urine Neg (NEGATIVE); Barbiturate Scree,Urine Neg (NEGATIVE); Benzodiazephine Screen, Urine Neg (NEGATIVE); Cannabinoid Screen, Urine Pos (NEGATIVE); Cocaine Screen, Urine Pos (NEGATIVE); Opiate Scree,Urine Neg (NEGATIVE); Phencyclidine Screen, Urine Neg (NEGATIVE)
--- NOTE | 2025-02-06 14:27 | DVH ---
Carotid Duplex Date: 02/06/2025 12:55 PM Clinical History: Syncope Comparison: None Technique: Duplex Doppler evaluation of the extracranial carotid and vertebral arteries including col or Doppler and spectral/pulsed waveform analysis was performed. Findings: Velocities and ratios within normal limits. IMPRESSION: No hemodynamically significant stenosis noted in the right carotid system. No hemodynamically significant stenosis noted in the left carotid system. Reference: Radiology 2003; 229:340-346
--- NOTE | 2025-02-06 15:15 | DVHSR ---
APPROVED REPORT EXAM: Two-dimensional and M-mode echocardiogram with Doppler and color Doppler. Blood Pressure: 101/63 mmHg INDICATION Syncope RISK FACTORS Obesity: Height: 5'10", Weight: 254 DIMENSIONS LVDd4.7 (3.8-5.7cm)LA (2D)4.2 (1.9-4.0cm)Aortic Root4.0 (2.0-3.7cm) LVDs3.3 (2.5-4.0cm)LA (MM) (1.9-4.0cm)Aortic Cusp Exc2.0 (1.5-2.0cm) EF (%) 55.0 (55-70%)Rt. Atrium4.5 (1.9-4.0cm)Asc. Aorta3.5 cm IVSd1.1 (0.7-1.1cm)RV (D) (1.8-2.4cm) PWd1.0 (0.7-1.1cm) Mitral Valve MitralMitral Stenosis E wave0.75m/sMV Mean GR.mmHg A wave0.76m/sMV Peak GR.mmHg E/A ratio1.02D MVAcm2 DECEL [id number] 1/2 [place] Aortic Valve Aortic ValveAortic Stenosis V11.06m/Caren Mean GR.3mmHg V21.13m/Caren Peak GR.5mmHg LVOT Diameter2.2 (1.8-2.4cm)Doppler AVA3.56cm2 Pulmonic Valve V20.73m/s Tricuspid Valve TR Velocity2.15m/s [id number] Other Information Technically limited study due to body habitus. Conclusion MILD LVH AND MILD LV DIASTOLIC DYSFUNCTION LV EF IS 65% AND IS NORMAL NORMAL VALVES NO EFFUSION NORMAL RV FUNCTION
[2025-02-06] MEDS: HYDROcodone-ACET 10/325MG TAB PO ONE (20:43)
[2025-02-07] VITALS (7 sets, daily range): BP systolic 93–106; BP diastolic 65–75; PULSE 67–98; RESP 17–18; TEMP 97.9–98.4; O2SAT 93–99
[2025-02-07 06:49] LABS: Basophils # (auto) 0 10 ^3/uL (0-0.2); Basophils % (auto) 0.2 % (0.0-2.0); Eosinophils # (auto) 0.1 10 ^3/uL (0-0.8); Eosinophils % (auto) 1.2 % (0.0-7.0); Hemoglobin 11.5 g/dL (12.2-16.2); Lymphocytes # (auto) 2.1 10 ^3/uL (0.4-5.4); Lymphocytes % (auto) 24.7 % (10.0-50.0); Mean Corpuscular Hemoglobin 27.6 pg (28.0-32.0); Mean Corpuscular Hgb Conc. 33.8 g/dL (32.0-36.0); Mean Corpuscular Volume 81.6 fL (80.0-100.0); Monocytes # (auto) 0.5 10 ^3/uL (0-1.3); Monocytes % (auto) 6.2 % (0.0-12.0); Neutrophils # (auto) 5.9 10 ^3/uL (1.6-8.6); Neutrophils % (auto) 67.7 % (37.0-80.0); Nucleated Red Blood Cells % 0.1 %; Platelet Count (auto) 274 10^3/uL (140-450); Red Blood Cells 4.16 10^6/uL (4.0-5.20); Red Cell Distribution Width 13.9 % (11.8-14.3); White Blood Cell 8.7 10^3/uL (4.4-10.8)
[2025-02-07 07:03] LABS: Alanine Aminotransferase 18 U/L (7-40); Albumin 3.8 g/dL (3.2-4.8); Anion Gap 9 (5-15); Aspartate Aminotransferase 21 U/L (13-40); BUN/Creatinine Ratio 9.1 (10.0-20.0); Bilirubin, Total 0.6 mg/dL (0.2-1.0); Calcium 9.2 mg/dL (8.7-10.4); Carbon Dioxide 25 mmol/L (20-31); Glucose 95 mg/dL (74-106); Sodium 141 mmol/L (136-145); Total Protein 6.6 g/dL (5.7-8.2)
[2025-02-07 07:11] LABS: Alkaline Phosphatase 35 U/L (46-116); Blood Urea Nitrogen 7 mg/dL (9-23); Chloride 107 mmol/L (98-107); Potassium 3.4 mmol/L (3.5-5.1)
[2025-02-07] MEDS ORDERED: CEPH500C PO (09:32)
[2025-02-07] MEDS ORDERED: HYDR-4902 PO (09:32)
--- NOTE | 2025-02-07 09:37 | DVHPN2 ---
Reviewed: Care Plan, H&P, Labs, Medications, Previous Orders, Radiology Changes from previous H/P or p: No Changes Eyes: No Pain, No Vision change, No Conjunctivae inflammation, No Eyelid inflammation, No Other, No Redness ENT: No Ear pain, No Ear discharge, No Nose pain, No Nose discharge, No Nose congestion, No Mouth pain, No Mouth swelling, No Throat pain, No Throat swelling, No Other Cardiovascular: No Chest Pain, No Palpitations, No Orthopnea, No Paroxysmal Noc. Dyspnea, No Edema, No Lt Headedness; Other (Syncope) Respiratory: No Cough, No Dry, No Shortness of breath, No SOB with excertion, No Wheezing, No Hemoptysis, No Pleuritic Pain, No Sputum, No Other Gastrointestinal: No Nausea, No Vomiting, No Abdominal Pain, No Diarrhea, No Constipation, No Melena, No Hematochezia, No Other Genitourinary: No Dysuria, No Frequency, No Incontinence, No Hematuria, No Retention, No Other Musculoskeletal: No other, No neck pain, No shoulder pain, No arm pain, No back pain, No hand pain, No leg pain, No foot pain Skin: No Rash, No Lesions, No Jaundice, No Bruising; Other (Facial/lips laceration) Objective Vitals Vital Signs Date Time Temp Pulse Resp B/P (MAP) Pulse Ox O2 Delivery O2 Flow Rate FiO2 02/07/25 08:30 98 02/07/25 08:00 Room Air* 0 21 02/07/25 05:00 97.9 18 98/68 (78) 99 97.9 Intake/Output Intake and Output 02/07/25 07:00 Intake Total 700 ml Balance 700 ml Intake Oral 700 ml # Voids 8 Medications Current Medications Medications Dose Ordered Sig/Reddy Route Start Time Stop Time Status Last Admin Dose Admin Bacitracin 1 applic BID TOP 02/06/25 10:00 02/07/25 09:20 1 APPLIC Sodium Chloride 10 ml Q8HR IV 02/06/25 06:00 02/07/25 06:09 10 ML Acetaminophen/ Hydrocodone Bitart 1 tab Q4HP PRN PO 02/06/25 02:15 02/07/25 09:21 1 TAB Ondansetron HCl 4 mg Q4HP PRN IV 02/06/25 02:15 Docusate Sodium 100 mg BIDPRN PRN PO 02/06/25 02:15 Acetaminophen 650 mg Q6HP PRN PO 02/06/25 02:15 Nitroglycerin 0.4 mg Q5MINP PRN SL 02/06/25 02:15 Morphine Sulfate 2 mg Q30M PRN IV 02/06/25 02:15 Laboratory Results Laboratory Tests 02/07/25 06:03 Chemistry Test 02/07/25 06:03 Albumin 3.8 g/dL (3.2-4.8) Calcium Level 9.2 mg/dL (8.7-10.4) Total Protein 6.6 g/dL (5.7-8.2) Coagulation Test 02/06/25 13:18 D-Dimer, Quantitative 0.35 mg/L FEU (0.0-0.49) LFT Test 02/07/25 06:03 Alanine Aminotransferase (ALT) 18 U/L (7-40) Alkaline Phosphatase 35 U/L (46-116) L Aspartate Amino Transferase (AST) 21 U/L (13-40) Total Bilirubin 0.6 mg/dL (0.2-1.0) Urinalysis Test 02/06/25 03:20 Urine Color Light-yellow (Yellow) Urine Clarity Turbid (Clear) H Urine pH 5.5 (5.0-9.0) Urine Specific [place] 1.016 (1.001-1.035) Urine Protein Negative (Negative) Urine Ketones Negative (Negative) Urine Blood Negative /uL (Negative) Urine Nitrite Negative (Negative) Urine Bilirubin Negative (Negative) Urine Urobilinogen Normal mg/dL (Negative) Urine Leukocyte Esterase 3+ /uL (Negative) Urine RBC 2 /hpf (0 - 4) Urine Microscopic WBC 17 /HPF (0-5) H Urine Squamous Epithelial Cells Few /hpf (<5) Urine Bacteria Few /hpf (None Seen) H Urine Hyaline Casts Few /lpf (0 - 2) Urine Mucus Few (None Seen) Urine Yeast (Budding) Occasional /hpf (None Urine Glucose Normal mg/dL (Normal) Labs and/or images reviewed: Labs reviewed by me, Image(s) reviewed by me Assessment/Plan Assessment/Plan Syncope and fall possibly secondary to cocaine abuse: CT head negative maxillofacial CT negative, rule out TIA rule out seizures: Carotid ultrasound negative, echocardiogram 65 percent ejection fracture Neurology consult pending Cardiology consult appreciated, no more cardiac workup Laceration chin sutured in the emergency room UTI: Treated with Rocephin TSH normal Chronic current alcohol abuse: Counseling Chronic current marijuana abuse Chronic current cocaine abuse: Counseling RN Reese at bed side. Plan discussed with: Patient My Orders Orders - MUMTAZ SHELDON MD Procedure Category Date Status Time Carotid Duplx W Color US 02/06/25 Resulted DOP 12:36 * Neurology Consult CONS 02/06/25 Transmitted 12:37 Date of Service: February 07, 2025 Billing Provider: MUMTAZ SHELDON MD Common Visit Codes: [id number] INP/OBS CARE(HIGH) MUMTAZ SHELDON MD February 07, 2025 09:37
--- NOTE | 2025-02-07 09:40 | DVHDS2 ---
Discharge Summary Date of Admission February 06, 2025 at 02:12 Date of Discharge: February 07, 2025 Admitting Diagnosis Syncope and fall Wounds: Laceration chin Labs/Diagnostic Data: Laboratory Results Test 02/07/25 06:03 02/06/25 13:18 02/06/25 03:20 02/06/25 02:39 White Blood Count 8.7 10^3/uL (4.4-10.8) Red Blood Count 4.16 10^6/uL (4.0-5.20) Hemoglobin 11.5 g/dL (12.2-16.2) Hematocrit 34.0 % (36.0-46.0) Mean Corpuscular Volume 81.6 fL (80.0-100.0) Mean Corpuscular Hemoglobin 27.6 pg (28.0-32.0) Mean Corpuscular Hemoglobin Concent 33.8 g/dL (32.0-36.0) Red Cell Distribution Width 13.9 % (11.8-14.3) Platelet Count 274 10^3/uL (140-450) Mean Platelet Volume 6.9 fL (6.9-10.8) Neutrophils (%) (Auto) 67.7 % (37.0-80.0) Lymphocytes (%) (Auto) 24.7 % (10.0-50.0) Monocytes (%) (Auto) 6.2 % (0.0-12.0) Eosinophils (%) (Auto) 1.2 % (0.0-7.0) Basophils (%) (Auto) 0.2 % (0.0-2.0) Neutrophils # (Auto) 5.9 10 ^3/uL (1.6-8.6) Lymphocytes # (Auto) 2.1 10 ^3/uL (0.4-5.4) Monocytes # (Auto) 0.5 10 ^3/uL (0-1.3) Eosinophils # (Auto) 0.1 10 ^3/uL (0-0.8) Basophils # (Auto) 0 10 ^3/uL (0-0.2) Nucleated Red Blood Cells 0.1 % Sodium Level 141 mmol/L (136-145) Potassium Level 3.4 mmol/L (3.5-5.1) Chloride Level 107 mmol/L (98-107) Carbon Dioxide Level 25 mmol/L (20-31) Anion Gap 9 (5-15) Blood Urea Nitrogen 7 mg/dL (9-23) Creatinine 0.77 mg/dL (0.550-1.02) Glomerular Filtration Rate Calc 102 mL/min (>90) BUN/Creatinine Ratio 9.1 (10.0-20.0) Serum Glucose 95 mg/dL (74-106) Calcium Level 9.2 mg/dL (8.7-10.4) Total Bilirubin 0.6 mg/dL (0.2-1.0) Aspartate Amino Transferase (AST) 21 U/L (13-40) Alanine Aminotransferase (ALT) 18 U/L (7-40) Alkaline Phosphatase 35 U/L (46-116) Total Protein 6.6 g/dL (5.7-8.2) Albumin 3.8 g/dL (3.2-4.8) D-Dimer, Quantitative 0.35 mg/L FEU (0.0-0.49) Urine Color Light-yellow (Yellow) Urine Clarity Turbid (Clear) Urine pH 5.5 (5.0-9.0) Urine Specific [place] 1.016 (1.001-1.035) Urine Protein Negative (Negative) Urine Ketones Negative (Negative) Urine Blood Negative /uL (Negative) Urine Nitrite Negative (Negative) Urine Bilirubin Negative (Negative) Urine Urobilinogen Normal mg/dL (Negative) Urine Leukocyte Esterase 3+ /uL (Negative) Urine RBC 2 /hpf (0 - 4) Urine Microscopic WBC 17 /HPF (0-5) Urine Squamous Epithelial Cells Few /hpf (<5) Urine Bacteria Few /hpf (None Seen) Urine Hyaline Casts Few /lpf (0 - 2) Urine Mucus Few (None Seen) Urine Yeast (Budding) Occasional /hpf (None Urine Glucose Normal mg/dL (Normal) Urine Opiates Screen Neg (NEGATIVE) Urine Fentanyl Screen Neg (NEGATIVE) Urine Barbiturates Screen Neg (NEGATIVE) Urine Phencyclidine Screen Neg (NEGATIVE) Urine Amphetamines Screen Neg (NEGATIVE) Urine Benzodiazepines Screen Neg (NEGATIVE) Urine Cocaine Screen Pos (NEGATIVE) Urine Cannabinoids Screen Pos (NEGATIVE) Hemoglobin A1c 5.2 % A1C (<5.7) Thyroid Stimulating Hormone (TSH) 0.80 uIU/mL (0.55-4.78) Plasma/Serum Blood Alcohol < 3.0 mg/dL (<10) Test 02/05/25 21:47 02/05/25 20:49 Troponin I High Sensitivity < 3 ng/L (</=34) Magnesium Level 1.8 mg/dL (1.6-2.6) B-Type Natriuretic Peptide 6.93 pg/mL (0-100) Other Laboratory Tests 02/07/25 06:03 Brief Hx & Hospital Course: 39-year-old female was in a democrat consuming cocaine and marijuana had syncopal episode while going to restroom and fell came to the ER laceration chin was sutured in the emergency room. CT head was negative maxillofacial CT was negative carotid ultrasound negative echocardiogram 65 percent ejection fraction mild UTI treated with Rocephin TSH normal patient has chronic current alcohol abuse marijuana abuse and cocaine abuse. Seen by Cardiology echocardiogram 65 percent ejection fraction no further cardiac workup. Neurology consult pending but the patient feels better and wants to go home. Discharged home on Keflex and [place] she will follow up with the primary Dr in one week for suture removal. Consults/Reason for consult Cardiology Operations or Procedures CT head Carotid ultrasound Echocardiogram Condition at Discharge: Fair Final Diagnosis/Problems List Syncope and fall: CT head negative maxillofacial CT negative, rule out TIA rule out seizures: Carotid ultrasound negative, echocardiogram 65 percent ejection fracture Neurology consult pending Cardiology consult appreciated, no more cardiac workup Laceration chin sutured in the emergency room UTI: Treated with Rocephin TSH normal Chronic current alcohol abuse: Counseling Chronic current marijuana abuse Chronic current cocaine abuse: Counseling Discharge Disposition: Home Discharge Instruct/Medications Diet: Regular Activity: Light activity Follow Up/Referral: Follow up with the primary Dr in one week for suture removal Use medications as prescribed Stop doing cocaine and marijuana Medications: Keflex [place] [facility] (Time taken for discharge summary 39 minutes) Discharge Statement: "Patient was advised to return to the ER or call 911 if any headaches, dizziness, shortness of breath, chest pain, abdominal pain, bleeding, fevers, or worsening of medical condition. Patient was counseled about treatment plan, medications, possible side effects, patient�verbalized understanding. All questions were answered to the best of my ability. This discharge took greater then 30 minutes in planning, reviewing documentation, counseling the patient, and discussing with other team members." ASSESSMENT ASSESSMENT Hospital Course Uneventful Assessment Syncope and fall: CT head negative maxillofacial CT negative, rule out TIA rule out seizures: Carotid ultrasound negative, echocardiogram 65 percent ejection fracture Neurology consult pending Cardiology consult appreciated, no more cardiac workup Laceration chin sutured in the emergency room UTI: Treated with Rocephin TSH normal Chronic current alcohol abuse: Counseling Chronic current marijuana abuse Chronic current cocaine abuse: Counseling Date of Service: February 07, 2025 Billing Provider: MUMTAZ SHELDON MD Common Visit Codes: [id number] DISCH DAY >30min MUMTAZ SHELDON MD February 07, 2025 09:40
== END 2025-02-07 12:38 | disposition home or self-care (01) | DRG 580 ==
LOC: ER 20:29 → EDBD 20:29 → OVERFLOW 02-06 02:12 → TELE-EAST 02-06 03:38
PROVIDERS: ADMIT Family Medicine; ATTEND Family Medicine
PROC: 0JQ10ZZ Repair Face Subcutaneous Tissue and Fascia, Open Approach (ICD-10-PCS; principal; 2025-02-06)
DX: S01.81XA Laceration without foreign body of other part of head, initial encounter (principal); N39.0 Urinary tract infection, site not specified; G90.89 Other disorders of autonomic nervous system; E87.6 Hypokalemia; D64.9 Anemia, unspecified; S01.511A Laceration without foreign body of lip, initial encounter; F10.10 Alcohol abuse, uncomplicated; F14.10 Cocaine abuse, uncomplicated; Z79.899 Other long term (current) drug therapy; F12.10 Cannabis abuse, uncomplicated; Z82.49 Family history of ischemic heart disease and other diseases of the circulatory system; Z79.2 Long term (current) use of antibiotics; Z71.41 Alcohol abuse counseling and surveillance of alcoholic; W18.39XA Other fall on same level, initial encounter; Y93.89 Activity, other specified; Y92.89 Other specified places as the place of occurrence of the external cause; Y99.8 Other external cause status; Y90.0 Blood alcohol level of less than 20 mg/100 ml
CPT/HCPCS: 12013; 36415; 70450; 70486; 80053; 80307; 80320; 81001; 83036; 84443; 85025; 85379; 93005; 93306; 93886; 96361; 96374; 96375; G0378; J1885